=== PATIENT | female | born 1990 | race African-American/Black ===

== ENCOUNTER 2017-02-28 00:04 | Emergency (ER) | payer BC, OTHER ==
[2017-02-28] MEDS ORDERED: Adacel (T-DAP) 0.5 ML VIAL ONE (00:34)
--- NOTE | 2017-02-28 07:17 | RAD ---
3 VIEWS LEFT RING FINGER: Date: 02/28/17 HISTORY: Patient slammed finger in door yesterday and currently has no nail bed. The patient states that the left ring finger pain has increased. FINDINGS: No fracture is visualized. On the lateral view, there is a punctate radiopaque density seen overlyin g the volar subcutaneous soft tissues, but this is likely artifactual as this is not seen on the fro ntal or oblique views. There is soft tissue irregularity seen overlying the region of the nail bed. No other findings. IMPRESSION: Mild soft tissue irregularity overlying the region of the expected location of the nail bed. However , no underlying fracture is seen involving the distal phalanx of the left ring finger. POS: [facility]
== END 2017-02-28 01:50 | disposition home or self-care (01) ==
LOC: SCSER 00:04
DX: S61.305A Unspecified open wound of left ring finger with damage to nail, initial encounter (principal); Z23 Encounter for immunization; W23.0XXA Caught, crushed, jammed, or pinched between moving objects, initial encounter
CPT/HCPCS: 64450; 90471; 90715

== ENCOUNTER 2018-07-31 20:38 | Emergency (ER) | payer BC ==
[2018-07-31 21:09] LABS: Bilirubin Negative (Negative); Blood, Urine Negative (Negative); Clarity Slightly Cloudy (Clear); Glucose, Urine (Dipstick) Negative (Negative); Leukocyte Negative (Negative); Nitrite Negative (Negative); Protein, Urine (Dipstick) 100 mg/dL (Neg-Trace)
[2018-07-31 21:11] LABS: Pregnancy Test - Urine (BHCG) Negative (Negative); Pregu Control Background? CLEAR/WHITE (CLR/WHITE); Pregu Control Bar Appear? YES (CONTROL BAR); Specific Gravity 1.028 (1.002-1.036)
[2018-07-31 21:12] LABS: Specific Gravity, Urine 1.028 (1.002-1.036)
[2018-07-31] MEDS ORDERED: Dexamethasone 4 MG TAB ONE (21:14)
[2018-07-31] MEDS ORDERED: Ondansetron PF 4 MG/2 ML Vial ONE (21:15)
[2018-07-31] MEDS ORDERED: Acetaminophen 500 MG TAB ONE (21:15)
[2018-07-31 21:20] LABS: Bacteria/HPF 1+ HPF (None Seen); RBC/HPF 0-3 HPF (0-3); WBC/HPF 0-3 HPF (0-3)
== END 2018-07-31 22:20 | disposition home or self-care (01) ==
LOC: SCSER 20:38
DX: J02.9 Acute pharyngitis, unspecified (principal)
CPT/HCPCS: 81003; 81015; 81025; 87081; 87430; 96361; 96374; J2405; J8540